=== PATIENT | male | born 1985 | race Caucasian/White ===

== ENCOUNTER 2023-01-14 21:22 | Emergency (ER) | payer SELFPAY ==
[~2023-01-14] VITALS: Ht 193 cm; Wt 67.3 kg
[2023-01-14 21:32] VITALS: BP 120/84
== END 2023-01-14 21:40 | disposition home or self-care (01) ==
LOC: ER 21:22
DX: M25.561 Pain in right knee (principal); V00.131A Fall from skateboard, initial encounter; Y93.51 Activity, roller skating (inline) and skateboarding; F17.200 Nicotine dependence, unspecified, uncomplicated
CPT/HCPCS: 99282